=== PATIENT | female | born 1950 | race Caucasian/White ===

== ENCOUNTER 2017-06-09 08:14 | Observation (INO) | payer OTHER ==
[~2017-06-09] VITALS: Ht 198.1 cm; Wt 100.9 kg
--- NOTE | ~2017-06-09 | EKG ---
[address] [place] [address] ELECTROCARDIOGRAM REPORT Name: ALY MILLER Room #: 214-P [facility] M.R.#: [id number] Admission: 06/09/17 Attend Phys: Delano Moura MD Discharge: Date of : 54 Report #: [id number] THIS REPORT FOR: //name// [facility] ED Test Date: 2017-06-09 Test Time: 08:25:27 Pat Name: ALY MILLER Department: Room: 214 Gender: F Information Systems Security Manager: IMMANUEL : 1950 Requested By: Eric Li Order Number: [id number] MD: Abdelrahman Owen Measurements Intervals [place] Rate: 94 P: 46 VT: 177 QRS: -19 QRSD: 95 T: 80 QT: 354 QTc: 443 Interpretive Statements Sinus rhythm Inferior infarct, old No previous ECG available for comparison Electronically Signed On 06-09-2017 17:30:59 REMEDIATION TECHNICIAN by Abdelrahman Owen [email or web address] <ELECTRONICALLY SIGNED> By: Abdelrahman Owen MD, [facility] 06/09/17 1730 0825 0825 Abdelrahman Owen MD, FAC /EPI
--- NOTE | ~2017-06-09 | 2DMMODE ---
[facility] [address] [place] [address] 2 D/M-MODE ECHOCARDIOGRAM Name: ALY MILLER Room #: 214-P ADM IN M.R.#: [id number] Admission: 06/09/17 Attend Phys: Delano Moura MD Discharge: Date of : 54 Date of Service: 06/09/17 1555 Report #: [id number] THIS REPORT FOR: //name// APPROVED REPORT Study performed: 06/09/2017 14:46:50 EXAM: Comprehensive 2D, Doppler, and color-flow Echocardiogram Patient Location: Echo lab Room #: 214 Status: routine BSA: 2.02 HR: 85 bpm BP: 175/92 mmHg Rhythm: NSR Other Information Study Quality: Adequate Indications Palpitations, hypertension. 2D Dimensions RVDd: 37.44 mm LVEF(%): 61.12 (>50%) IVSd: 12.16 (7-11mm) LVOT Diam: 20.82 (18-24mm) LVDd: 41.52 mm PWd: 10.39 (7-11mm) Ascending Ao: 35.60 (22-36mm) LVDs: 28.07 (25-40mm) Aortic Root: 36.21 mm Sahu's LVEF: 61.12 % Volumes Left Atrial Volume (Systole) Single Plane 4CH: 43.72 mL Single Plane 2CH: 44.73 mL LA ESV Index: 24.00 mL/m2 Aortic Valve AoV Peak Dev.: 1.53 m/s AO Peak Gr.: 9.41 mmHg LVOT Max P.22 mmHg LVOT Max V: 1.43 m/s SAY Vmax: 3.18 cm2 Mitral Valve E/A Ratio: 0.7 MV Decel. Time: 391.96 ms [facility] [employer] [place] [address] 2 D/M-MODE ECHOCARDIOGRAM Name: [facility] Room #: 214- ADM IN M.R.#: [id number] Admission: 06/09/17 Attend Phys: Delano Moura MD Discharge: Date of : 54 Date of Service: 06/09/17 1555 Report #: [id number] MV E Max Dev.: 0.61 m/s MV A Dev.: 0.89 m/s MV PHT: 113.67 ms IVRT: 87.66 ms Pulmonary Valve PV Peak Dev.: 1.26 m/s PV Peak Gr.: 6.37 mmHg Tricuspid Valve RAP Estimate: 5.00 mmHg Left Ventricle The left ventricle is normal size. There is normal LV segmental wall motion. Mild basal septal hypertrophy is present. Left ventricular systolic function is hyperdynamic. LVEF is 65-70%. Mild diastolic dysfunction is present (impaired relaxation pattern). Right Ventricle The right ventricle is normal size. The right ventricular systolic function is normal. Atria The left atrium size is normal. The right atrium size is normal. Aortic Valve The aortic valve is normal in structure. No aortic regurgitation is present. There is no aortic valvular stenosis. Mitral Valve The mitral valve is normal in structure. Trace mitral regurgitation. Tricuspid Valve The tricuspid valve is normal in structure. There is no tricuspid valve regurgitation noted. Unable to assess PA pressure. Pulmonic Valve Pulmonic valve is not well visualized. There is no pulmonic valvular regurgitation. Great Vessels The aortic root is normal in size. The ascending aorta is normal in size. IVC is normal in size and collapses >50% with inspiration. [facility] [address] [place] [address] 2 D/M-MODE ECHOCARDIOGRAM Name: [facility] Room #: 214-P [facility] IN M.R.#: [id number] Admission: 06/09/17 Attend Phys: eDlano Moura MD Discharge: Date of : 54 Date of Service: 06/09/17 1555 Report #: [id number] Pericardium There is no pericardial effusion. <Conclusion> The left ventricle is normal size. LVEF is 65-70%. The aortic valve is normal in structure. The mitral valve is normal in structure. Trace mitral regurgitation. The tricuspid valve is normal in structure. There is no tricuspid valve regurgitation noted. Unable to assess PA pressure. Pulmonic valve is not well visualized. There is no pericardial effusion. <ELECTRONICALLY SIGNED> By: Josiah Villa MD 06/09/17 1555 1555 1555 Josiah Villa MD /INF
[2017-06-09 08:37] LABS: AMP/METHAMP Negative (Negative); BARBITURATES Negative (Negative); BENZODIAZEPINES Negative (Negative); COCAINE Negative (Negative); METHADONE Negative (Negative); OPIATES Negative (Negative); PCP Negative (Negative)
[2017-06-09 08:58] VITALS: BP 150/100
[2017-06-09 10:05] LABS: ABSOLUTE NEUTROPHILS 6.6 thou/uL (1.4-8.2); BASOPHILS 1.1 % (0.0-2.0); EOSINOPHILS 0.5 % (0.0-3.0); HEMATOCRIT 46.3 % (37.0-47.0); HEMOGLOBIN 15.4 gm/dL (12.0-15.0); MCH 26.7 pg (26.0-34.0); MCHC 33.3 g/dL (28.0-37.0); MCV 80.1 fL (80.0-100.0); MONOCYTES 4.7 % (1.0-8.0); PLATELET COUNT 349 thou/uL (150-400); POLYS 67.7 % (36.0-66.0); RBC 5.78 mil/uL (4.20-5.00); RDW 13.7 % (10.5-14.5); WBC 9.7 thou/uL (4.0-11.0)
[2017-06-09 10:18] LABS: ANION GAP 8 mmol/L (7-16); BUN 15 mg/dL (7-18); CALCIUM 10.3 mg/dL (8.5-10.1); CHLORIDE 103 mmol/L (98-107); CO2 30 mmol/L (21-32); CREATININE 0.9 mg/dL (0.6-1.0); GLUCOSE 109 mg/dL (74-106); POTASSIUM 3.8 mmol/L (3.5-5.1); SODIUM 141 mmol/L (136-145)
[2017-06-09 10:26] LABS: ALBUMIN 4.2 g/dL (3.4-5.0); MAGNESIUM 2.1 mg/dL (1.8-2.4); SGOT 19 U/L (15-37); SGPT 40 U/L (30-65); TOTAL BILIRUBIN 0.6 mg/dL (<0.1-1.0); TOTAL PROTEIN 8.2 g/dL (6.4-8.2); TROPONIN-I < 0.04 ng/mL (<0.06)
[2017-06-09 11:22] VITALS: BP 150/100
[2017-06-09 11:32] VITALS: BP 152/79
[2017-06-09 11:49] VITALS: BP 175/92
[2017-06-09] MEDS ORDERED: LISINOPRIL20 MG PO (13:24)
[2017-06-09] MEDS ORDERED: HYDROCHLOROTHIA25 M2 PO (13:26)
[2017-06-09] MEDS ORDERED: ZOCOR20 MG PO (13:27)
[2017-06-09 15:35] VITALS: BP 142/82
[2017-06-09 19:45] VITALS: BP 159/73
[2017-06-10 00:29] VITALS: BP 131/75
[2017-06-10 03:53] LABS: ABSOLUTE NEUTROPHILS 3.5 thou/uL (1.4-8.2); EOSINOPHILS 2.5 % (0.0-3.0); HEMATOCRIT 41.6 % (37.0-47.0); HEMOGLOBIN 13.6 gm/dL (12.0-15.0); LYMPHOCYTES 44.8 % (24.0-44.0); MCH 26.4 pg (26.0-34.0); MCHC 32.8 g/dL (28.0-37.0); MCV 80.4 fL (80.0-100.0); MONOCYTES 8.5 % (1.0-8.0); PLATELET COUNT 313 thou/uL (150-400); POLYS 43.2 % (36.0-66.0); RBC 5.17 mil/uL (4.20-5.00); RDW 13.8 % (10.5-14.5); WBC 8.2 thou/uL (4.0-11.0)
[2017-06-10 04:05] VITALS: BP 121/73
[2017-06-10 04:11] LABS: CALCIUM 9.3 mg/dL (8.5-10.1); CREATININE 0.8 mg/dL (0.6-1.0); MAGNESIUM 2.1 mg/dL (1.8-2.4); POTASSIUM 3.6 mmol/L (3.5-5.1)
[2017-06-10 04:23] LABS: CHOLESTEROL 183 mg/dL (<200); HDL CHOLESTEROL 54 mg/dL (>40); LDL CHOLESTEROL 104 mg/dL (<100); TC:HDL 3.4 Ratio (Not establshd); TRIGLYCERIDE 126 mg/dL (<150); VLDL 25 mg/dL (<40)
[2017-06-10 04:25] LABS: SERUM ASSESSMENT Clear
[2017-06-10 08:15] VITALS: BP 122/68
[2017-06-10 12:00] VITALS: BP 141/86
[2017-06-10 16:15] VITALS: BP 136/74
[2017-06-10 18:27] VITALS: BP 136/74
== END 2017-06-10 18:56 | disposition home or self-care (01) ==
LOC: ER 08:14 → 2N 10:49 → EROBS 10:49 → 2N 11:34
PROVIDERS: Emergency Medicine; Nurse Practitioner
DX: R00.2 Palpitations (principal); I10 Essential (primary) hypertension; E78.5 Hyperlipidemia, unspecified; M54.2 Cervicalgia; M79.642 Pain in left hand; M79.602 Pain in left arm; K21.9 Gastro-esophageal reflux disease without esophagitis; Z82.49 Family history of ischemic heart disease and other diseases of the circulatory system

== ENCOUNTER → 2019-06-08 | Outpatient (CLI) | payer OTHER ==
[~2019-06-08] MED LIST: HYDROCHLOROTHIA25 M2 PO; LISINOPRIL20 MG PO; ZOCOR20 MG PO
== END | disposition home or self-care (01) ==
LOC: SJCVCIMAG 13:53
DX: I73.9 Peripheral vascular disease, unspecified (principal); M79.604 Pain in right leg; M79.605 Pain in left leg; R60.9 Edema, unspecified

== ENCOUNTER → 2019-07-04 | Outpatient (CLI) | payer OTHER ==
[~2019-07-04] VITALS: Ht 160 cm; Wt 106.6 kg
[~2019-07-04] MED LIST changes: +AMLODIPINE BESY10 MG PO; +KLOR-CON20 ME1 PO; +LASIX 40 MG TAB40 MG PO
== END | disposition home or self-care (01) ==
LOC: GI 08:54
DX: Z12.11 Encounter for screening for malignant neoplasm of colon (principal); K57.30 Diverticulosis of large intestine without perforation or abscess without bleeding; K64.8 Other hemorrhoids; I10 Essential (primary) hypertension; E78.00 Pure hypercholesterolemia, unspecified; G47.30 Sleep apnea, unspecified; Z98.890 Other specified postprocedural states; Z79.899 Other long term (current) drug therapy; Z90.710 Acquired absence of both cervix and uterus; Z98.51 Tubal ligation status; Z88.8 Allergy status to other drugs, medicaments and biological substances
CPT/HCPCS: 62110; 62900

== ENCOUNTER → 2020-01-03 | Outpatient (CLI) | payer OTHER | LOC: SJCVC 14:05 | PROVIDERS: ATTEND Internal Medicine Cardiovascular Disease | DX: I11.0 Hypertensive heart disease with heart failure (principal); I50.32 Chronic diastolic (congestive) heart failure; Z79.899 Other long term (current) drug therapy ==

== ENCOUNTER → 2020-01-03 | Outpatient (CLI) | payer OTHER ==
--- NOTE | 2020-01-03 14:24 | 2DMMODE ---
[facility] [place] [address] 2 D/M-MODE ECHOCARDIOGRAM Name: ALY MILLER V Room #: REG [facility]#: [id number] Admission: 01/03/20 Attend Phys: Kevin Harris MD Discharge: Date of : 54 Report #: [id number] THIS REPORT FOR: cc: Dariana Justin Beth RNP Park, Jin S. MD ~ APPROVED REPORT Study performed: 01/03/2020 13:36:26 EXAM: Comprehensive 2D, Doppler, and color-flow Echocardiogram Patient Location: Out-Patient Status: routine BSA: 2.06 HR: 87 bpm Rhythm: NSR Other Information Study Quality: Good Indications Palpitations 2D Dimensions RVDd: 38.64 mm IVSd: 10.03 (7-11mm) LVOT Diam: 19.50 (18-24mm) LVDd: 48.63 mm PWd: 9.85 (7-11mm) Ascending Ao: 34.30 (22-36mm) LVDs: 26.81 (25-40mm) Aortic Root: 37.34 mm Volumes Left Atrial Volume (Systole) Single Plane 4CH: 48.97 mL Single Plane 2CH: 54.88 mL LA ESV Index: 27.00 mL/m2 Aortic Valve AoV Peak Dev.: 1.92 m/s AO Peak Gr.: 14.81 mmHg LVOT Max P.50 mmHg LVOT Max V: 1.70 m/s SAY Vmax: 2.63 cm2 [facility] [place] [place] [address] 2 D/M-MODE ECHOCARDIOGRAM Name: ALY MILLER V Room #: REG [facility]#: [id number] Admission: 01/03/20 Attend Phys: Kevin Harris Discharge: Date of : 54 Report #: [id number] Mitral Valve E/A Ratio: 0.9 MV Decel. Time: 186.31 ms MV E Max Dev.: 0.67 m/s MV A Dev.: 0.77 m/s MV PHT: 54.03 ms IVRT: 66.90 ms Pulmonary Valve PV Peak Dev.: 1.44 m/s PV Peak Gr.: 8.33 mmHg Pulmonary Vein P Vein S: 0.79 m/s P Vein D: 0.40 m/s P Vein S/D Ratio: 1.98 Tricuspid Valve RAP Estimate: 5.00 mmHg Left Ventricle The left ventricle is normal size. There is normal LV segmental wall motion. Mild basal septal hypertrophy is present. Left ventricular systolic function is normal. LVEF is 65-70%. Mild diastolic dysfunction is present (impaired relaxation pattern). Right Ventricle The right ventricle is normal size. The right ventricular systolic function is normal. Atria The left atrium size is normal. The right atrium size is normal. Aortic Valve The aortic valve is normal in structure. No aortic regurgitation is present. There is no aortic valvular stenosis. Mitral Valve The mitral valve is normal in structure. Trace mitral regurgitation. No evidence of mitral valve stenosis. Tricuspid Valve The tricuspid valve is normal in structure. There is no tricuspid valve regurgitation noted. Unable to assess PA pressure. Pulmonic Valve [facility] [address] [address] 2 D/M-MODE ECHOCARDIOGRAM Name: ALY MILLER V Room #: [facility]#: [id number] Admission: 01/03/20 Attend Phys: Kevin Harris Discharge: Date of : 54 Report #: [id number] The pulmonary valve is normal in structure. Trace pulmonic regurgitation. Great Vessels The aortic root is normal in size. The ascending aorta is normal in size. IVC is normal in size and collapses >50% with inspiration. <Conclusion> The left ventricle is normal size. Left ventricular systolic function is normal. Mild diastolic dysfunction is present (impaired relaxation pattern). The right ventricle is normal size. The left atrium size is normal. The aortic valve is normal in structure. Trace mitral regurgitation. <ELECTRONICALLY SIGNED> By: Quan Davis MD 01/03/20 1423 1423 1423 Quan Davis MD /INF
== END ==
LOC: CV 13:22
PROVIDERS: ATTEND Internal Medicine Cardiovascular Disease
DX: I11.0 Hypertensive heart disease with heart failure (principal); I50.9 Heart failure, unspecified; R00.2 Palpitations

== ENCOUNTER → 2020-07-15 | Outpatient (CLI) | payer OTHER ==
[2020-07-15 10:43] LABS: CREATININE 0.9 mg/dL (0.6-1.0)
== END ==
LOC: CAT 10:01
PROVIDERS: ATTEND Nurse Practitioner
DX: N83.201 Unspecified ovarian cyst, right side (principal); R19.5 Other fecal abnormalities; M25.78 Osteophyte, vertebrae; K42.9 Umbilical hernia without obstruction or gangrene

== ENCOUNTER → 2021-03-04 | Outpatient (CLI) | payer OTHER | LOC: MRI 02-19 15:25 | PROVIDERS: ATTEND Nurse Practitioner | DX: M51.14 Intervertebral disc disorders with radiculopathy, thoracic region (principal); M48.54XA Collapsed vertebra, not elsewhere classified, thoracic region, initial encounter for fracture; M25.78 Osteophyte, vertebrae; M48.061 Spinal stenosis, lumbar region without neurogenic claudication ==